=== PATIENT | male | born 1945 | race Caucasian/White ===

== ENCOUNTER → 2016-10-18 | Outpatient (CLI) | payer MEDICARE | END | disposition home or self-care (01) | LOC: GMAH 10:31 | PROVIDERS: ATTEND Family Medicine | DX: Z12.5 Encounter for screening for malignant neoplasm of prostate (principal); E78.2 Mixed hyperlipidemia; N39.0 Urinary tract infection, site not specified | CPT/HCPCS: 84443; 84550; 87086; G0103 ==

== ENCOUNTER → 2017-10-24 | Outpatient (CLI) | payer MEDICARE | LOC: GMAH 11:10 | PROVIDERS: ATTEND Family Medicine | DX: I10 Essential (primary) hypertension (principal); E78.2 Mixed hyperlipidemia; E11.9 Type 2 diabetes mellitus without complications; Z12.5 Encounter for screening for malignant neoplasm of prostate | CPT/HCPCS: 84443; 84550; G0103 ==

== ENCOUNTER → 2019-01-15 | Outpatient (CLI) | payer MEDICARE | LOC: GMAH 10:27 | PROVIDERS: ATTEND Family Medicine | DX: E78.2 Mixed hyperlipidemia (principal); E11.9 Type 2 diabetes mellitus without complications; I10 Essential (primary) hypertension; Z12.5 Encounter for screening for malignant neoplasm of prostate | CPT/HCPCS: 84443; 84550; G0103 ==

== ENCOUNTER → 2020-02-12 | Outpatient (CLI) | payer MEDICARE ==
--- NOTE | 2020-02-12 09:38 | RAD ---
EXAM DESCRIPTION: Lumbar Spine 3 Views CLINICAL HISTORY: 74 years Male, LOW BACK PAIN COMPARISON: None. Findings: 3 views/radiographs Location: Lumbar spine Five lumbar type vertebral bodies. No acute fracture or subluxation. Vertebral body heights are maintained. Atherosclerotic disease. Osteopenia. Mild multilevel degenerative disc disease. Degenerative digits changes are most pronounced at L4/L5. IMPRESSION: Multilevel lumbar spondylosis. No acute fracture or subluxation. Electronically signed by: Carlitos Oseguera MD 02/12/2020 9:37 AM CDT
--- NOTE | 2020-02-12 15:20 | MRI ---
EXAM DESCRIPTION: Lumbar Spine w/o Contrast : Magnetic Resonance Imaging. CLINICAL HISTORY: LOW BACK PAIN COMPARISON: Lumbar spine 3 views on the same visit. TECHNIQUE: Multiplanar, multiple standard sequences, non contrast MRI, lumbar spine. FINDINGS: L5-S1: The disc is well visualized on axial T2 series 501, image 3. Disc desiccation and posterior disc space loss. Large extruded fragment or sequestered fragment posteriorly into the left of midline and inferiorly measuring approximately 11 x 9 mm and effacing the left subarticular recess and displacing the descending left S1 nerve. Degenerative hypertrophy of the bilateral facet joints and posterior flavum ligaments (canal elements). Mild to moderate left paracentral canal narrowing. Borderline right foraminal stenosis and mild left neural foraminal stenosis. L4-L5: Disc desiccation and marked disc space loss with anterior bulging. Posterior broad-based bulge with minimal inferior migration below the disc space narrowing the bilateral subarticular recesses. Minimal hypertrophic changes in the canal elements with canal patent. Mild to moderate right foraminal narrowing with left foraminal stenosis L3-L4: Minimal disc desiccation and disc space maintained. No significant bulging. Mild hypertrophic changes in the canal elements and mild canal narrowing. Mild bilateral foraminal narrowing more on the right. L2-L3: Disc normal signal and minimal bulging, with disc space maintained. Mild hypertrophic canal elements. Right foramen minimal narrowing and left foramen patent. L1-L2: Normal signal in the disc with disc space maintained. Minimal hypertrophic changes in the canal elements with canal and bilateral foramina patent. Conus terminates just above the disc space. T12-L1: Disc normal signal with no bulging. Disc space maintained. Minimal hypertrophic changes in the canal elements. Canal and foramina are patent. No scoliosis. Paravertebral soft tissues are negative. Distal cord normal signal and caliber. Normal marrow signal in the remaining vertebral bodies and the posterior elements. Vertebral bodies are not compressed at any level. IMPRESSION: 1. Inferior extrusion or extrusion and sequestered fragment of the L5-S1 disc to the left of midline with effacement of the left subarticular recess and displacement of the left S1 nerve. Canal narrowing. Bilateral foraminal stenosis. 2. Posterior right side L4-L5 spondylosis and disc bulge encroaching on the thecal sac and causing left foraminal stenosis. Correlate for left L4 radiculopathy. Electronically signed by: Layton Flores MD 02/12/2020 3:18 PM CDT
== END ==
LOC: MRI 08:56
PROVIDERS: ATTEND Family Medicine
DX: M47.896 Other spondylosis, lumbar region (principal); M48.061 Spinal stenosis, lumbar region without neurogenic claudication; M51.86 Other intervertebral disc disorders, lumbar region; M51.27 Other intervertebral disc displacement, lumbosacral region

== ENCOUNTER → 2020-03-09 | Outpatient (CLI) | payer MEDICARE | LOC: GMA MATASK 10:50 | PROVIDERS: ATTEND Family Medicine | DX: E78.2 Mixed hyperlipidemia (principal); Z12.5 Encounter for screening for malignant neoplasm of prostate; E11.9 Type 2 diabetes mellitus without complications | CPT/HCPCS: 84443; 84550; G0103 ==

== ENCOUNTER 2020-08-01 19:18 | Inpatient (IN) | payer MEDICARE ==
[2020-08-01] MEDS: SODIUM CHLORIDE 0.9% (FLUSH) 10 ML SYG IV PRN (19:27)
[2020-08-01] MEDS ORDERED: DEXAMETHASONE INJ 10 MG/ML VIAL IV ONE (19:28)
[2020-08-01] MEDS ORDERED: IPRATROPIUM/ALBUTEROL 3 ML VIAL NEB ONE (19:28)
[2020-08-01] MEDS ORDERED: cefTRIAXone SODIUM 1 GM in SODIUM CHL 0.9% 50ML MIN-BAG+ 50 ML IVPB ONE (19:34)
[2020-08-01] MEDS ORDERED: AZITHROMYCIN 250 MG TAB PO ONE (19:36)
[2020-08-01] MEDS ORDERED: hydrALAZINE HCl 20 MG/ML VIAL IV ONE (19:38)
[2020-08-01] MEDS ORDERED: SODIUM CHLORIDE 0.9% 1000ML 1,000 ML IVS ONE ×2 (20:08→20:10)
--- NOTE | 2020-08-01 20:09 | RAD ---
EXAM DESCRIPTION: Chest,1 View 08/01/2020 8:06 PM [employer]ENDANT CLINICAL HISTORY: 75 years, Male, sob COMPARISON: 05/06/2016 FINDINGS: Single view of the chest was obtained portable. Prior films were compared. Again there is hyperinflation. The cardiomediastinal silhouette demonstrate to be unremarkable. The heart is not enlarged. The thoracic aorta demonstrate intimal aortic arch calcification. There are parenchymal changes are again identified within the left lung base/or trace of left pleural effusion the right lung is clear. The rest of the soft tissue and bony structures demonstrate to be unremarkable. IMPRESSION: HYPERINFLATION-COPD. FINDINGS SUGGEST MOST LIKELY PLEUROPARENCHYMAL CHANGES WITHIN THE LEFT LUNG BASE, LESS LIKELY TRACE OF LEFT PLEURAL EFFUSION Electronically signed by: Florian Birmingham MD 08/01/2020 8:08 PM [employer] ATTENDANT
[2020-08-01] MEDS ORDERED: MAGNESIUM SULFATE PREMIX 2GM 2 GM in PREMIX BAG 1 BAG IVPB ONE (20:10)
--- NOTE | 2020-08-01 20:13 | ED.PDOC ---
History of Present Illness - General Chief Complaint: Respiratory Problem Stated Complaint: shortness of breath Time Seen by Provider: 08/01/20 19:18 Source: patient Exam Limitations: no limitations - History of Present Illness Timing/Duration: other - 6 hours Severity: mild, moderate Possible Cause: frequent episodes Improving Factors: nothing Worsening Factors: nothing Associated Symptoms: denies symptoms Respiratory Risk Factors: no cause identified Allergies/Adverse Reactions: Allergies NO KNOWN ALLERGY Allergy (Unverified 04/30/16 07:27) Home Medications: Ambulatory Orders Amlodipine Besylate 10 mg PO DAILY 11/15/12 Benazepril HCl 40 mg PO DAILY 11/15/12 Meloxicam [Mobic] 15 mg PO DAILY 11/15/12 Metformin HCl 1,000 mg PO NOON 11/15/12 Simvastatin 40 mg PO DAILY 11/15/12 Tamsulosin [Flomax] 0.4 mg PO DAILY 11/15/12 Clonidine HCl [Clonidine Hydrochloride] 0.4 mg PO DAILY 08/31/15 Finasteride [Proscar] 5 mg PO DAILY 08/31/15 Metformin HCl [Metformin Hydrochloride] 1,000 mg PO 1700 08/31/15 Metformin HCl [Metformin Hydrochloride] 500 mg PO DAILYBK 08/31/15 Albuterol Sulfate [Proair Hfa] 2 puff INH Q6H PRN #1 04/30/16 Review of Systems - Review of Systems Constitutional: States: chills. Denies: fever EENTM: Denies: blurred vision, tearing, ear discharge, nose pain Respiratory: States: cough, short of breath. Denies: stridor Cardiology: Denies: chest pain, palpitations, syncope Gastrointestinal/Abdominal: Denies: abdominal pain, nausea Genitourinary: Denies: discharge, frequency, hematuria Musculoskeletal: Denies: back pain, gout, joint swelling, muscle pain Skin: Denies: change in color, lesions Neurological: Denies: anxiety, depressed, numbness Endocrine: Denies: excessive sweating, increased thirst, increased urine Hematologic/Lymphatic: Denies: anemia, easy bleeding, easy bruising Past Medical History (General) - Patient Medical History Hx Seizures: No Hx Stroke: No Hx Dementia: No Hx Asthma: No Hx of COPD: Yes Hx Cardiac Disorders: Yes Hx Congestive Heart Failure: No Hx Pacemaker: No Hx Hypertension: Yes Hx Thyroid Disease: No Hx Diabetes: Yes - NIDDM Hx Gastroesophageal Reflux: No Hx Renal Disease: No Hx Cancer: No Hx of HIV: No Hx Hepatitis C: No Hx MRSA: No Surgical History: cholecystectomy, other - Vaccination History Hx Tetanus, Diphtheria Vaccination: Yes Hx Influenza Vaccination: Yes Hx Pneumococcal Vaccination: Yes Immunizations Up to Date: Yes - Social History Hx Tobacco Use: Yes Hx Chewing Tobacco Use: No Hx Alcohol Use: No Hx Substance Use: No Hx Substance Use Treatment: No Hx Depression: No Feels Threatened In Home Enviroment: No Feels Threatened In a Relationship: No Hx Physical Abuse: No Hx Emotional Abuse: No Hx Suspected Abuse: No - Activities of Daily Living Hospice Agency (if applicable):: None - Female History Patient is a Female of Child Bearing Age (10 -59 yrs old): No - Triage Comment ED Triage Comment: hx of copd and heavy smoker Family Medical History - Family History Mother Family History: No Known Living Status: Still Living Physical Exam - Physical Exam General Appearance: Alert Eyes, Ears, Nose, Throat Exam: PERRL/EOMI, normal ENT inspection, TMs normal, pharynx normal Neck: non-tender, full range of motion, supple, normal inspection Respiratory: chest non-tender, lungs clear, no accessory muscle use, respiratory distress, rhonchi, wheezing, other - tachyneic Cardiovascular/Chest: normal peripheral pulses, regular rate, rhythm, no edema, no gallop, no JVD, no murmur Peripheral Pulses: radial,right: 2+, radial,left: 2+, popliteal,right: 2+, popliteal,left: 2+ Gastrointestinal/Abdominal: normal bowel sounds, non tender, soft Extremity: normal range of motion, non-tender, normal inspection, no pedal edema, no calf tenderness Neurologic: 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 Has a history of COPD is treated with steroids and nebulizers. He is respiratory status significantly improved. Start on antibiotics IV fluids pending lab work. - EKG/XRAY/CT XRAY: chest - left sided infiltrated , official rad report pending Departure - Departure Clinical Impression: Respiratory failure, COPD (chronic obstructive pulmonary disease) with emphysema, Hypomagnesemia, Severe sepsis, Pneumonia Disposition: Admit Patient Home Medications: Ambulatory Orders Amlodipine Besylate 10 mg PO DAILY 11/15/12 Benazepril HCl 40 mg PO DAILY 11/15/12 Meloxicam [Mobic] 15 mg PO DAILY 11/15/12 Metformin HCl 1,000 mg PO NOON 11/15/12 Simvastatin 40 mg PO DAILY 11/15/12 Tamsulosin [Flomax] 0.4 mg PO DAILY 11/15/12 Clonidine HCl [Clonidine Hydrochloride] 0.4 mg PO DAILY 08/31/15 Finasteride [Proscar] 5 mg PO DAILY 08/31/15 Metformin HCl [Metformin Hydrochloride] 1,000 mg PO 1700 08/31/15 Metformin HCl [Metformin Hydrochloride] 500 mg PO DAILYBK 08/31/15 Albuterol Sulfate [Proair Hfa] 2 puff INH Q6H PRN #1 04/30/16
--- NOTE | 2020-08-01 21:36 | HP ---
SUPERVISING PHYSICIAN: Wallace Bland MD CHIEF COMPLAINT: Increasing shortness of breath. HISTORY OF PRESENT ILLNESS: Mr. Aguilar is a 75 year-old male patient who has a significant history of chronic obstructive pulmonary disease in a current smoker. He endorses he has been having some shortness of breath over the last several days but last night it significantly worsened where he was utilizing breathing treatments at home including nebulizers with albuterol which did not provide any significant relief. On initial presentation to the Emergency Room, he was obviously short of breath with vital signs showing he was afebrile at 97.3. Initial oxygen saturation 78% on room air at rest. He is not 02 dependent at home. He was given a breathing treatment with significant improvement showing oxygen saturation 95% on 3 liters nasal cannula, respirations 18. The patient was noted to be hypertensive on admission with initial blood pressure 219/112. After treatment, that improved to 149/80 prior to admission. Lab did show he head a leukocytosis of 19,400 with a left shift. Coagulation studies showed his D-dimer at 105. Chemistries showed lactic acid initially at 3.4 with a creatinine of 0.89, anion gap was elevated at 92.2. Magnesium was low at 1.5. Respiratory panel was negative for Covid and influenza as well as all other bacterial and viral agents as tested. Chest x- ray showed findings suggestive of pleuroparenchymal changes within the left lung base. Given his degree of hypoxia on room air and the fact that he is not 02 dependent and his COPD history and concerns for developing pneumonia with exacerbation of chronic obstructive pulmonary disease, he is going to be admitted for continuation of treatment. He is admitted in stable condition. PAST MEDICAL HISTORY: 1. Chronic obstructive pulmonary disease in a current smoker. 2. Benign prostatic hypertrophy. 3. Hypertension. 4. Type 2 diabetes mellitus [id number]. PAST SURGICAL HISTORY: 1. Right shoulder surgery in 2016. 2. Hemorrhoidectomy. 3. Pancreatic injury due to previous surgery. 4. Hernia repair. 5. Left testicle removal. 6. Laser eye surgery. CURRENT MEDICATIONS: 1. Carvedilol 3.125 mg b.i.d. 2. Aspirin 81 mg daily. 3. Simvastatin 40 mg daily. 4. Amlodipine 10 mg daily. 5. Metformin 1000 mg at 5 o'clock. 6. Metformin 500 mg in the morning. 7. Metformin 1000 mg at noon. 8. Flomax 0.4 mg daily. 9. Albuterol inhaler 2 puffs every 6 hours as needed. 10. Meloxicam 16 mg daily. 11. Proscar 5 mg daily. 12. Clonidine 0.6 mg daily. 13. Benazepril 40 mg daily. ALLERGIES: NO KNOWN DRUG ALLERGIES. FAMILY HISTORY: Noncontributory. 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 He is . Has currently smokes about 2 packs per day and has for well over 50 years. He denies any alcohol consumption on a regular basis. REVIEW OF SYSTEMS: CONSTITUTIONAL: Negative for chills, fatigue, he does note some fever, on unintentional weight loss. CARDIOVASCULAR: Negative for any chest pain, orthopnea or pedal edema. RESPIRATORY: As noted in history of present illness. Increasing dyspnea, denies productive cough. GASTROINTESTINAL: Denies nausea, vomiting, diarrhea, constipation or abdominal pain. GENITOURINARY: Denies dysuria, hematuria or polyuria. RECTAL: Exam deferred. BACK: Without CVA or vertebral tenderness. MUSCULOSKELETAL: Denies arthralgias, joint swelling, joint stiffness. SKIN: Denies lesions, rashes, moles or unexplained changes. NEUROLOGIC: Negative ataxia, seizures, paresthesias or other focal deficits. HEMATOLOGIC: Denies unexplained bleeding, bruising or transfusion reaction. PHYSICAL EXAMINATION: VITAL SIGNS: In the Emergency Room, temperature 97.3, pulse 78, blood pressure 219/112 with respirations 24, oxygen saturation 78% on room air at rest. After treatment and improvement in respiratory function with oxygen saturation 95% on 3 liter nasal cannula, after breathing treatments with blood pressure 149/80, respirations 20. GENERAL: The patient looks to be resting comfortably at time of admission. He is in no obvious acute distress. He is alert. HEENT: Tympanic membranes are clear bilaterally. Oropharynx is pink and moist without any lesions. NECK: Supple, full range of motion. No jugular venous distention. CHEST: Lung sounds notably significant but no obvious rhonchi or wheezing or rales. Lung sounds were diminished towards the bases. CARDIOVASCULAR: Regular rate and rhythm without appreciable murmurs, gallops, or rubs. ABDOMEN: Soft, nontender. Positive bowel sounds. EXTREMITIES: No clubbing, cyanosis or edema. NEUROLOGIC: Cranial nerves II-XII are grossly intact. He is alert and oriented x 3. SKIN: Warm, pink and dry. LABORATORY: White count on admission was 19,400, hemoglobin 15.5, hematocrit 46.1, platelet count 315,000. Differential does show a left shift. Coagulation studies showed a PT of 9.6 with PTT 23.6. D-dimer was 106. Chemistries show normal sodium and potassium. Anion gap was elevated at 19.2, carbon dioxide normal at 27, BUN 21, creatinine 0.89. Lactic 3.4 initially. Calcium 9.8, magnesium low at 1.5, total bilirubin slightly elevated at 1.6. All other liver functions were within normal limits. Troponin 0.02. BNP normal at 34. Urinalysis showed 100 of protein, 100 of glucose, trace of blood. Otherwise, within normal limits. No microscopic abnormalities. MICROBIOLOGY: Respiratory panel negative for all bacterial and viral targets including influenza and Covid. Blood cultures were drawn. RADIOLOGY: Chest x-ray showed hyperinflation secondary to chronic obstructive pulmonary disease with findings suggestive most likely of pleuroparenchymal changes within the left lung base. ASSESSMENT: 1. Acute chronic obstructive pulmonary disease exacerbation with a component of hypoxia and patient not 02 dependent. 2. Left lower lobe pneumonia, community acquired contributing to #1. 3. Hypertension. 4. Sepsis secondary to #1 and #2 with lactic acidosis. 5. Electrolytes imbalance with hypomagnesemia; 6. Hypertension. 7. Type 2 diabetes. 8. Benign prostatic hypertrophy. 9. Chronic nicotine addiction in a smoker. PLAN: The patient is going to be admitted for acute exacerbation of chronic obstructive pulmonary disease with developing left lower lobe community acquired. He was given Decadron in the Emergency Room initially with Rocephin. Will continue antibiotic coverage with Rocephin and azithromycin. Given his degree of chronic obstructive pulmonary disease and tobacco abuse, we certainly put him on some Solu-Medrol. He was given 2 liters of fluid. Will follow his lactic acid to make sure those are normalizing. He will be on insulin sliding scale per protocol. Will be o DVT prophylaxis per protocol with Lovenox. Will resume his home medications as soon as those have been updated and verified as appropriate to level of care. I would anticipate his length of stay to be at least 2 to 3 days. Until we can transition patient to outpatient management, we will continue with aggressive bronchial hygiene and monitor closely and treat as needed. [facility][id number] [facility]
[2020-08-01] MEDS ORDERED: IV SET AND CAP CHANGE INJ INJ SCH (22:30)
[2020-08-01] MEDS ORDERED: SODIUM CHLORIDE 0.9% (FLUSH) 10 ML SYG IV PRN (22:30)
[2020-08-01] MEDS ORDERED: ALBUTEROL SULFATE 2.5 MG/3 ML VIAL NEB PRN (22:30)
[2020-08-01] MEDS ORDERED: ACETAMINOPHEN 325 MG TAB PO PRN (22:30)
[2020-08-01] MEDS ORDERED: ONDANSETRON INJ 4 MG/2 ML VIAL IV PRN (22:30)
[2020-08-01] MEDS ORDERED: GLUCAGON INJ 1 MG VIAL SUBCU PRN (22:30)
[2020-08-01] MEDS ORDERED: DEXTROSE 50% 25 GM/50 ML SYG IV PRN (22:30)
[2020-08-02] MEDS: SODIUM CHLORIDE 0.9% (FLUSH) 10 ML SYG IV PRN (05:32)
[2020-08-02] MEDS: PANTOPRAZOLE SODIUM IV 40 MG VIAL IV SCH (05:32)
[2020-08-02] MEDS ORDERED: amLODIPine BESYLATE 5 MG TAB ONE (07:38)
[2020-08-02] MEDS ORDERED: MELOXICAM 7.5 MG TAB ONE (07:39)
[2020-08-02] MEDS ORDERED: AZITHROMYCIN IV 500 MG VIAL IVPB ONE (07:39)
[2020-08-02] MEDS ORDERED: cloNIDine HCL 0.1 MG TAB ONE (07:39)
[2020-08-02] MEDS ORDERED: methylPREDNISolone SODIUM SUC 125 MG/2 ML VIAL ONE ×2 (07:39→16:13)
[2020-08-02] MEDS ORDERED: cefTRIAXone SODIUM 1 GM VIAL ONE (07:40)
[2020-08-02] MEDS ORDERED: SODIUM CHL 0.9% 50ML MIN-BAG+ 50 ML IVPB ONE (07:40)
[2020-08-02] MEDS ORDERED: SODIUM CHLORIDE 0.9% 250ML 250 ML ONE (07:40)
[2020-08-02] MEDS: INSULIN LISPRO 100 UNITS/ML PEN SUBCU SCH ×4 (07:50→21:06)
[2020-08-02] MEDS: metFORMIN HCL 500 MG TAB PO SCH (07:51)
[2020-08-02] MEDS ORDERED: methylPREDNISolone SODIUM SUC 125 MG/2 ML VIAL IV SCH ×4 (09:00→21:00)
[2020-08-02] MEDS: NON-FORMULARY MEDICATION 1 EA MIS (Meloxicam [Mobic] 15 MG) PO SCH (09:07)
[2020-08-02] MEDS: CLONIDINE HCL PO SCH (09:07)
[2020-08-02] MEDS: NON-FORMULARY MEDICATION 1 EA MIS (Amlodipine Besylate [Amlodipine Besylate] 10 MG) PO SCH (09:08)
[2020-08-02] MEDS: cefTRIAXone SODIUM 1 GM in SODIUM CHL 0.9% 50ML MIN-BAG+ 50 ML IVPB SCH (09:08)
[2020-08-02] MEDS: BIFIDOBACTERIUM INFANTIS 4 MG CAP PO SCH (09:08)
[2020-08-02] MEDS: FINASTERIDE 5 MG TAB PO SCH (09:08)
[2020-08-02] MEDS: NON-FORMULARY MEDICATION 1 EA MIS (Benazepril Hcl [Benazepril Hcl] 40 MG) PO SCH (09:08)
[2020-08-02] MEDS: TAMSULOSIN 0.4 MG CAP PO SCH (09:08)
[2020-08-02] MEDS: AZITHROMYCIN IV 500 MG in SODIUM CHLORIDE 0.9% 250ML 250 ML IVPB SCH (09:09)
[2020-08-02] MEDS: IPRATROPIUM/ALBUTEROL 3 ML VIAL INH SCH ×3 (09:18→20:30)
--- NOTE | 2020-08-02 10:01 | RAD ---
PROCEDURE:XR CHEST 2 VIEWS HISTORY:Pneumonia COMPARISON: August 01, 2020 FINDINGS: The heart appears unremarkable. The lungs are again seen to be hyperinflated with emphysematous changes. There is a developing patchy infiltrate seen at the right lung base. There is a stable left-sided effusion and atelectatic changes overlying the left-sided effusion. There is no pneumothorax There are no acute bony or soft tissue abnormalities. IMPRESSION: COPD Worsening infiltrate seen within the right lung base Stable left-sided effusion with overlying atelectatic changes Electronically signed by: Denny Lee MD 08/02/2020 10:00 AM [facility]
[2020-08-02] MEDS ORDERED: NON-FORMULARY MEDICATION 1 EA MIS (Metformin Hcl [Metformin Hcl] 1,000 MG) PO SCH (12:00)
[2020-08-02] MEDS ORDERED: CARVEDILOL 3.125 MG TAB ONE ×2 (16:13→19:35)
[2020-08-02] MEDS: NICOTINE PATCH 21 MG TD SCH (16:16)
[2020-08-02] MEDS: CARVEDILOL 3.125 MG PO SCH ×2 (16:16→20:12)
--- NOTE | 2020-08-02 16:18 | PN ---
SUPERVISING PHYSICIAN: Wallace Bland MD DATE: 08/02/20 SUBJECTIVE: The patient notes his breathing is a little bit improved today. He is still pretty much short of breath with any exertional effort. He has not had any chest pain, nausea or vomiting. No other complaints. OBJECTIVE: VITAL SIGNS: Temperature 97.7, pulse 88, blood pressure 132/70, respirations 18, oxygen saturation 97% on 3 liter nasal cannula. GENERAL: The patient looks to be resting comfortably and is in no acute distress. He is alert. CHEST: Lung sounds diminished toward the bases bilaterally. HEART: Regular rate and rhythm. ABDOMEN: Soft, non-tender, positive bowel sounds. EXTREMITIES: Without edema. NEUROLOGIC: He is alert and oriented x 3. LABORATORY: White count did show an increased leukocytosis at 22,100, hemoglobin 12.5, hematocrit 37.8, platelet count 240,000. Differential does show a left shift but no bands. Chemistries showed normal electrolytes. BUN 19, creatinine 0.72, lactic acid down to 2.3. Magnesium 1.8. MICROBIOLOGY: Blood cultures remained negative at 24 hours. RADIOLOGY: Repeat chest x-ray this morning per radiology interpretation shows worsening infiltrate in the right lung base. ASSESSMENT: 1. Acute chronic obstructive pulmonary disease exacerbation with a component of hypoxia and patient not 02 dependent. 2. Left lower lobe pneumonia, community acquired contributing to #1 with right lower lobe pneumonia. 3. Hypertension. 4. Sepsis secondary to #1 and #2 with lactic acidosis. 5. Electrolytes imbalance with hypomagnesemia; 6. Hypertension. 7. Type 2 diabetes. 8. Benign prostatic hypertrophy. 9. Chronic nicotine addiction in a smoker. PLAN: Even though his white count did increase, I think this is probably due to his steroids and he does have what looks like a history of some chronic leukocytosis, therefore, we will hold off on escalating his antibiotic coverage. We will continue with Rocephin and azithromycin and continue to monitor closely. I do have him on Solu-Medrol 60 every 6 hours for 3 doses. We will see if we can titrate him down to p.o. prednisone. We will continue to monitor his labs and x-rays. We will continue with aggressive pulmonary hygiene, he is on Lovenox. Hopefully, we will be able to transition him to outpatient management in the next 24-48 hours. Until then, we will continue to monitor and treat as needed. #[id number] [facility]
[2020-08-02] MEDS ORDERED: NON-FORMULARY MEDICATION 1 EA MIS (Metformin Hcl [Metformin Hydrochloride] 1,000 MG) PO SCH (17:00)
[2020-08-02] MEDS: ENOXAPARIN SODIUM 40 MG/0.4 ML SYG SUBCU SCH (20:13)
[2020-08-02] MEDS: guaiFENesin ER TAB 600 MG TAB PO SCH (20:13)
[2020-08-02] MEDS: PROMETHAZINE W/CODEINE SYR 6.25 MG/10 MG/5 ML UD PO PRN (21:27)
[2020-08-03] MEDS: PANTOPRAZOLE SODIUM IV 40 MG VIAL IV SCH (06:01)
[2020-08-03] MEDS: INSULIN LISPRO 100 UNITS/ML PEN SUBCU SCH ×4 (07:18→20:42)
[2020-08-03] MEDS ORDERED: IPRATROPIUM/ALBUTEROL 3 ML VIAL NEB ONE (07:28)
[2020-08-03] MEDS: IPRATROPIUM/ALBUTEROL 3 ML VIAL INH SCH ×4 (08:54→20:37)
[2020-08-03] MEDS: BIFIDOBACTERIUM INFANTIS 4 MG CAP PO SCH (10:06)
[2020-08-03] MEDS: AZITHROMYCIN IV 500 MG in SODIUM CHLORIDE 0.9% 250ML 250 ML IVPB SCH (10:06)
[2020-08-03] MEDS: cefTRIAXone SODIUM 1 GM in SODIUM CHL 0.9% 50ML MIN-BAG+ 50 ML IVPB SCH (10:06)
[2020-08-03] MEDS: guaiFENesin ER TAB 600 MG TAB PO SCH ×2 (10:07→20:06)
[2020-08-03] MEDS: NICOTINE PATCH 21 MG TD SCH (10:07)
[2020-08-03] MEDS: metFORMIN HCL 500 MG TAB PO SCH (10:07)
[2020-08-03] MEDS: TAMSULOSIN 0.4 MG CAP PO SCH (10:07)
[2020-08-03] MEDS: FINASTERIDE 5 MG TAB PO SCH (10:07)
[2020-08-03] MEDS: MELOXICAM 7.5 MG TAB PO SCH (10:19)
[2020-08-03] MEDS: amLODIPine BESYLATE 5 MG TAB PO SCH (10:19)
[2020-08-03] MEDS: cloNIDine HCL 0.1 MG TAB PO SCH (10:19)
[2020-08-03] MEDS: LISINOPRIL 10 MG TAB PO SCH (10:20)
[2020-08-03] MEDS: CARVEDILOL 3.125 MG TAB PO SCH ×2 (10:20→20:06)
[2020-08-03] MEDS ORDERED: metFORMIN HCL 500 MG TAB PO SCH ×2 (12:00→17:00)
[2020-08-03] MEDS: NON-FORMULARY MEDICATION 1 EA MIS (Meloxicam [Mobic] 15 MG) PO SCH (13:49)
[2020-08-03] MEDS: NON-FORMULARY MEDICATION 1 EA MIS (Amlodipine Besylate [Amlodipine Besylate] 10 MG) PO SCH (13:58)
[2020-08-03] MEDS: CARVEDILOL 3.125 MG PO SCH (13:59)
[2020-08-03] MEDS: CLONIDINE HCL PO SCH (13:59)
[2020-08-03] MEDS: NON-FORMULARY MEDICATION 1 EA MIS (Benazepril Hcl [Benazepril Hcl] 40 MG) PO SCH (13:59)
[2020-08-03] MEDS ORDERED: methylPREDNISolone SODIUM SUC 40 MG/ML VIAL IV ONE (15:00)
--- NOTE | 2020-08-03 15:48 | PN ---
SUPERVISING PHYSICIAN: Kale Lazo MD DATE: 08/03/20 SUBJECTIVE: The patient notes he has not really had any shortness of breath today. His biggest problem is he feels like he is not getting enough food. I did encourage him to eat some snacks and told he might increase his calorie count. Otherwise, he seems to be doing okay. His white count has been coming down and he is stable. OBJECTIVE: VITAL SIGNS: Temperature 97.6, pulse 60, blood pressure 99/47, respirations 18, oxygen saturation 98% on 2 liter nasal cannula. GENERAL: The patient looks to be resting comfortably and is in no acute distress. He is alert. CHEST: Lung sounds diminished toward the bases bilaterally. HEART: Regular rate and rhythm. ABDOMEN: Soft, nontender, positive bowel sounds. EXTREMITIES: Without edema. NEUROLOGIC: He is alert and oriented x3. LABORATORY: White count is down to 17,000, hemoglobin 12.6, hematocrit 37.8, platelet count 221,000. Differential continues to show a left shift, but no bands. Chemistries show normal electrolytes with anion gap still elevated at 18.5, BUN 32, CO2 normal at 22. Blood sugars range between 228 and 285. Calcium 8.6. RADIOLOGY: No additional radiographic studies today. ASSESSMENT: 1. Acute chronic obstructive pulmonary disease exacerbation with a component of hypoxia and patient not 02 dependent. 2. Left lower lobe pneumonia, community acquired contributing to #1 with right lower lobe pneumonia. 3. Hypertension. 4. Sepsis secondary to #1 and #2 with lactic acidosis. 5. Electrolytes imbalance with hypomagnesemia. 6. Hypertension. 7. Type 2 diabetes. 8. Benign prostatic hypertrophy. 9. Chronic nicotine addiction in a smoker. PLAN: We will continue current plan of care for the right lower lobe pneumonia with treatment with azithromycin and Rocephin. If he continues to improve, hopefully we will transition to oral antibiotics and hopefully discharge in the next 24 to 48 hours. We will continue aggressive pulmonary hygiene. We will encourage deep breathing exercises with incentive spirometry. I decreased his steroids for a single dose Solu-Medrol today and start him on p.o. prednisone tomorrow. Until the patient can transition to outpatient management, we will continue to monitor and treat as needed. [facility][id number] [facility]
[2020-08-03] MEDS ORDERED: PANTOPRAZOLE SODIUM TAB 40 MG PO ONE (19:21)
[2020-08-03] MEDS: ENOXAPARIN SODIUM 40 MG/0.4 ML SYG SUBCU SCH (20:06)
[2020-08-03] MEDS: PROMETHAZINE W/CODEINE SYR 6.25 MG/10 MG/5 ML UD PO PRN (20:43)
[2020-08-04 05:34] VITALS: TEMP 97.9
[2020-08-04] MEDS ORDERED: PANTOPRAZOLE SODIUM TAB 40 MG PO SCH (06:30)
--- NOTE | 2020-08-04 07:41 | RAD ---
EXAM DESCRIPTION: Chest,1 View CLINICAL HISTORY: 75 years Male, right lower lobe pneumonia COMPARISON: August 02, 2020 chest x-ray and May 06, 2016 chest x-ray TECHNIQUE: AP portable chest. FINDINGS: Significant clearing of the right lower lobe since prior with minimal remaining strandy consolidation. Chronic scarring left lung base stable. Heart size normal. 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
[2020-08-04] MEDS: INSULIN LISPRO 100 UNITS/ML PEN SUBCU SCH (07:44)
[2020-08-04] MEDS: LISINOPRIL 10 MG TAB PO SCH (07:51)
[2020-08-04] MEDS: NICOTINE PATCH 21 MG TD SCH (07:51)
[2020-08-04] MEDS: metFORMIN HCL 500 MG TAB PO SCH (07:52)
[2020-08-04] MEDS: cloNIDine HCL 0.1 MG TAB PO SCH (07:52)
[2020-08-04] MEDS: MELOXICAM 7.5 MG TAB PO SCH (07:52)
[2020-08-04] MEDS: amLODIPine BESYLATE 5 MG TAB PO SCH (07:52)
[2020-08-04] MEDS: BIFIDOBACTERIUM INFANTIS 4 MG CAP PO SCH (07:52)
[2020-08-04] MEDS: CARVEDILOL 3.125 MG TAB PO SCH (07:52)
[2020-08-04] MEDS: guaiFENesin ER TAB 600 MG TAB PO SCH (07:52)
[2020-08-04] MEDS: TAMSULOSIN 0.4 MG CAP PO SCH (07:52)
[2020-08-04] MEDS: FINASTERIDE 5 MG TAB PO SCH (07:53)
[2020-08-04] MEDS ORDERED: predniSONE 20 MG TAB ONE (07:56)
[2020-08-04] MEDS: IPRATROPIUM/ALBUTEROL 3 ML VIAL INH SCH (08:19)
[2020-08-04] MEDS: cefTRIAXone SODIUM 1 GM in SODIUM CHL 0.9% 50ML MIN-BAG+ 50 ML IVPB SCH (08:51)
[2020-08-04] MEDS: AZITHROMYCIN IV 500 MG in SODIUM CHLORIDE 0.9% 250ML 250 ML IVPB SCH (08:52)
[2020-08-04] MEDS ORDERED: CEFDINIR 300 MG CAP PO SCH (09:00)
[2020-08-04] MEDS ORDERED: REMOVE OLD PATCH TOP SCH (09:00)
[2020-08-04] MEDS ORDERED: AZITHROMYCIN 250 MG TAB PO SCH (09:00)
[2020-08-04] MEDS ORDERED: predniSONE 20 MG TAB PO SCH (09:00)
[2020-08-04 09:58] VITALS: BP 180/85
[2020-08-04 10:07] VITALS: O2SAT 99
--- NOTE | 2020-08-06 13:02 | DS ---
SUPERVISING PHYSICIAN: Kale Lazo MD ADMISSION DIAGNOSIS: 1. Acute chronic obstructive pulmonary disease exacerbation with a component of hypoxia and patient not 02 dependent. 2. Left lower lobe pneumonia, community acquired contributing to #1. 3. Hypertension. 4. Sepsis secondary to #1 and #2 with lactic acidosis. 5. Electrolytes imbalance with hypomagnesemia; 6. Hypertension. 7. Type 2 diabetes. 8. Benign prostatic hypertrophy. 9. Chronic nicotine addiction in a smoker. DISCHARGE DIAGNOSIS: 1. Acute chronic obstructive pulmonary disease exacerbation with a component of hypoxia and patient not 02 dependent. 2. Left lower lobe pneumonia, community acquired contributing to #1 with right lower lobe pneumonia. 3. Hypertension. 4. Sepsis secondary to #1 and #2 with lactic acidosis. 5. Electrolytes imbalance with hypomagnesemia. 6. Hypertension. 7. Type 2 diabetes. 8. Benign prostatic hypertrophy. 9. Chronic nicotine addiction in a smoker. REASON FOR HOSPITALIZATION: Mr. Aguilar is a 75 year-old male patient who has a significant history of chronic obstructive pulmonary disease in a current smoker. He endorses he has been having some shortness of breath over the last several days but last night it significantly worsened where he was utilizing breathing treatments at home including nebulizers with albuterol which did not provide any significant relief. On initial presentation to the Emergency Room, he was obviously short of breath with vital signs showing he was afebrile at 97.3. Initial oxygen saturation 78% on room air at rest. He is not 02 dependent at home. He was given a breathing treatment with significant improvement showing oxygen saturation 95% on 3 liters nasal cannula, respirations 18. The patient was noted to be hypertensive on admission with initial blood pressure 219/112. After treatment, that improved to 149/80 prior to admission. Lab did show he head a leukocytosis of 19,400 with a left shift. Coagulation studies showed his D-dimer at 105. Chemistries showed lactic acid initially at 3.4 with a creatinine of 0.89, anion gap was elevated at 92.2. Magnesium was low at 1.5. Respiratory panel was negative for COVID and influenza as well as all other bacterial and viral agents as tested. Chest x- ray showed findings suggestive of pleuroparenchymal changes within the left lung base. Given his degree of hypoxia on room air and the fact that he is not 02 dependent and his COPD history and concerns for developing pneumonia with exacerbation of chronic obstructive pulmonary disease, he is going to be admitted for continuation of treatment. He is admitted in stable condition. LABORATORY: White count on discharge was 14,700, hemoglobin 12.3, hematocrit 36.7, platelet count 246,000. Differential did show a left shift. Coagulation studies showed D-dimer 106, PT 11.6, normal PTT. Chemistries on discharge showed creatinine 0.7. Electrolytes were within normal limits. Calcium 8.5, blood sugar ranged between 145 and 211. Urinalysis showed 100 protein, 100 glucose, trace blood. MICROBIOLOGY: Respiratory panel was negative for COVID, influenza and all other bacterial and viral targets as tested. Blood cultures remained negative after 4 days. RADIOLOGY: Final chest x-ray on discharge showed improving right lower lobe pneumonia. HOSPITAL COURSE: Mr. Aguilar was admitted for treatment of right lower lobe pneumonia. He was started on antibiotics with Rocephin and azithromycin and Solu-Medrol. He was given bronchial hygiene aggressively and had breathing treatments. He did improve clinically. It was felt he had improved well enough clinically on day of discharge to continue with outpatient management. Discharge vital signs showed he was afebrile at 97.9, pulse 69, blood pressure 180/85, saturation 97% on 0.5 liter nasal cannula and 94% on room air. PLAN: Mr. Aguilar was discharged on 08/04/20 with instructions to followup with his primary care provider, Dr. Alvarez, in 7 days or sooner as needed. He was to return to the Emergency Room as needed if he had any concerning symptoms. He was encouraged to quit smoking as much as possible, which will need to be followed up on as outpatient. He was to take his medications as directed, resume his diabetic diet, and increase activity as tolerated. Medications prescribed on discharge included: 1. Align 4 mg daily, #30, no refills. 2. Mucinex 600 mg twice daily as needed, no refills. 3. Cefdinir 300 mg twice daily, #14, no refills. 4. Prednisone 20 mg tablets, 8-day tapering dose, take as directed, no refills. 5. Albuterol inhaler 1 puff q.4h. as needed, #1 inhaler, no refills. 6. Tessalon Perles for cough 100 mg 3 times a day as needed, #50, no refills. CONDITION ON DISCHARGE: Stable and improved. DISPOSITION: The patient was discharged home. #[id number] [facility]
== END 2020-08-04 10:45 | disposition home or self-care (01) | DRG 871 ==
LOC: ER 19:18 → OBSVTOIN 21:35 → MS 21:35
PROVIDERS: ADMIT Nurse Practitioner Family; ATTEND Nurse Practitioner Family
DX: A41.9 Sepsis, unspecified organism (principal); J18.9 Pneumonia, unspecified organism; J44.1 Chronic obstructive pulmonary disease with (acute) exacerbation; E87.2 Acidosis; R09.02 Hypoxemia; E83.42 Hypomagnesemia; I10 Essential (primary) hypertension; E11.9 Type 2 diabetes mellitus without complications; N40.0 Benign prostatic hyperplasia without lower urinary tract symptoms; F17.210 Nicotine dependence, cigarettes, uncomplicated; Z79.1 Long term (current) use of non-steroidal anti-inflammatories (NSAID); Z79.82 Long term (current) use of aspirin; Z79.84 Long term (current) use of oral hypoglycemic drugs; Z79.899 Other long term (current) drug therapy